=== PATIENT | female | born 1995 | race Caucasian/White ===

== ENCOUNTER 2017-10-31 22:18 | Emergency (ER) | payer BC ==
[2017-10-31] MEDS ORDERED: Ampicillin/Sulbactam Na 3 GM in Sodium Chloride 0.9% 100 ML IV ONE (22:47)
--- NOTE | 2017-10-31 22:49 | EDM.PDOC ---
ED HPI GENERAL MEDICAL PROBLEM - General Chief Complaint: Skin Complaint Stated Complaint: RASH ON HER BUTT Time Seen by Provider: 10/31/17 22:31 Source of Information: Reports: Patient History Limitations: Reports: No Limitations - History of Present Illness INITIAL COMMENTS - FREE TEXT/NARRATIVE: The patient states that she was on a cruise in [place], returning about 2 weeks ago. One week ago she developed a left buttock rash. She has had pain and, she says fever, although she has not actually checked her temperature, and is afebrile here in the ED tonight. She denies any injury to the buttock. No prior similar symptoms. No medical evaluation prior to tonight. She has applied 10% hydrocortisone cream and Neosporin, and taken [id number] ibuprofen. The patient's last oral solid food was around 19:15 MDT. Her last oral liquid intake was around 22:00 MDT. The patient just moved to this area one week ago. She does not have a PCP. Left buttocks Pain Score (Numeric/FACES): 8 - Related Data Allergies Allergy/AdvReac Type Severity Reaction Status Date / Time No Known Allergies Allergy Verified 10/31/17 22:30 Home Meds: Home Meds . [No Known Home Meds] 10/31/17 [History] Past Medical History Endocrine/Metabolic History: Reports: Obesity/BMI 30+ - Past Surgical History Dermatological Surgical History: Reports: Other (See Below) (Birthmark excised from her back) Social & Family History - Family History Family Medical History: Noncontributory - Tobacco Use Smoking Status *Q: Current Every Day Smoker Years of Tobacco use: 6 Packs/Tins Daily: 0.5 - Alcohol Use Alcohol Use History: Yes Alcohol Use Frequency: Socially - Recreational Drug Use Recreational Drug Use: No - Living Situation & Occupation Living situation: Reports: Single, with Family Occupation: Unemployed ED ROS GENERAL - Review of Systems Review Of Systems: ROS reveals no pertinent complaints other than HPI. ED EXAM, SKIN/RASH Exam: See Below Exam Limited By: No Limitations General Appearance: Alert, WD/WN, No Apparent Distress Eye Exam: Bilateral Eye: Normal Inspection Ears: Normal External Exam, Hearing Grossly Normal Nose: Normal Inspection, No Blood Throat/Mouth: Normal Inspection, Normal Lips, Normal Voice, No Airway Compromise Head: Atraumatic, Normocephalic Neck: Normal Inspection, Full Range of Motion Respiratory/Chest: No Respiratory Distress, Lungs Clear, Normal Breath Sounds, No Accessory Muscle Use Cardiovascular: Normal Peripheral Pulses, Regular Rate, Rhythm, No Gallop, No JVD, No Murmur, No Rub Peripheral Pulses: 4+: Radial (L), Radial (R) GI/Abdominal: Normal Bowel Sounds, Soft, Non-Tender, No Organomegaly, No Distention, No Abnormal Bruit, No Mass, Other (Obese) Rectal (Female) Exam: Other (Extensive brawny erythema to the left buttock, extending from the gluteal cleft, measuring approximately 12-15 cm wide, by 12- 15 cm in AP diameter. The patient is particularly tender towards the gluteal cleft, concerning for a perianal abscess, although no discrete area of induration is identified.) Back Exam: Normal Inspection, Full Range of Motion, NT Extremities: Normal Inspection, Normal Range of Motion, No Pedal Edema, Normal Capillary Refill Neurological: Alert, Oriented, Normal Cognition, No Motor/Sensory Deficits Psychiatric: Normal Affect Skin: Warm, Dry, Intact, Normal Color Course - Vital Signs Last Recorded V/S: Last Vital Signs Temp 37.4 C 10/31/17 22:24 Pulse 131 H 10/31/17 22:24 Resp 18 10/31/17 22:24 BP 137/63 10/31/17 22:24 Pulse Ox 97 10/31/17 22:24 - Orders/Labs/Meds Orders: Active Orders 24 hr Category Date Time Status Pelvis w Cont [CT] Stat Exams 10/31/17 22:45 Taken Potassium Chloride [KCl 10 MEQ in Water 100 ML] 10 meq Med 11/01/17 00:44 Ordered Premix Bag 1 bag IV ONETIME Sodium Chloride 0.9% [Normal Saline] 1,000 ml Med 10/31/17 23:00 Active IV ASDIRECTED Sodium Chloride 0.9% [Saline Flush] Med 10/31/17 23:24 Active 10 ml FLUSH ONETIME PRN Medication Orders Sodium Chloride (Normal Saline) 1,000 mls @ 150 mls/hr IV ASDIRECTED DANDRE Last Admin: 10/31/17 23:07 Dose: 150 mls/hr Sodium Chloride (Saline Flush) 10 ml FLUSH ONETIME PRN PRN Reason: Keep Vein Open Last Admin: 10/31/17 23:49 Dose: 10 ml Labs: Laboratory Tests 10/31/17 10/31/17 10/31/17 Range/Units 22:55 22:55 23:06 WBC 13.57 H (3.98-10.04) K/mm3 RBC 4.20 (3.98-5.22) M/mm3 Hgb 12.7 (11.2-15.7) gm/L Hct 38.3 (34.1-44.9) % MCV 91.2 (79.4-94.8) fl MCH 30.2 (25.6-32.2) pg MCHC 33.2 (32.2-35.5) g/dl RDW Std Deviation 40.7 (36.4-46.3) fL Plt Count 199 (182-369) K/mm3 MPV 10.1 (9.4-12.3) fl Neutrophils % (Manual) 87 H (40-60) % Band Neutrophils % 0 (0-10) % Lymphocytes % (Manual) 4 L (20-40) % Atypical Lymphs % 2 % Monocytes % (Manual) 6 (2-10) % Eosinophils % (Manual) 1 (0.7-5.8) % Basophils % (Manual) 0 L (0.1-1.2) Toxic Granulation 2+ moderate Dohle Bodies Platelet Estimate Adequate Plt Morphology Comment Normal RBC Morph Comment Normal Sodium 135 L (136-145) mEq/L Potassium 3.1 L (3.5-5.1) mEq/L Chloride 100 (98-107) mEq/L Carbon Dioxide 23 (21-32) mEq/L Anion Gap 15.1 H (5-15) BUN 18 (7-18) mg/dL Creatinine 1.3 H (0.55-1.02) mg/dL Est Cr Clr Drug Dosing 67.89 mL/min Estimated GFR (MDRD) 51 (>60) mL/min BUN/Creatinine Ratio 13.8 L (14-18) Glucose 108 H (74-106) mg/dL Calcium 9.0 (8.5-10.1) mg/dL Total Bilirubin 0.5 (0.2-1.0) mg/dL AST 15 (15-37) U/L ALT 23 (14-59) U/L Alkaline Phosphatase 94 (46-116) U/L Total Protein 7.3 (6.4-8.2) g/dl Albumin 2.8 L (3.4-5.0) g/dl Globulin 4.5 gm/dL Albumin/Globulin Ratio 0.6 L (1-2) Urine HCG, Qual Negative (NEGATIVE) Meds: Medications Generic Name Dose Route Start Last Admin Trade Name Freaye PRN Reason Stop Dose Admin Sodium Chloride 1,000 mls @ 150 mls/hr 10/31/17 23:00 10/31/17 23:07 Normal Saline IV 150 mls/hr ASDIRECTED DANDRE Administration Sodium Chloride 10 ml 10/31/17 23:24 10/31/17 23:49 Saline Flush FLUSH 10 ml ONETIME PRN Administration Keep Vein Open Discontinued Medications Generic Name Dose Route Start Last Admin Trade Name Freq PRN Reason Stop Dose Admin Ampicillin Sodium/Sulbactam 100 mls @ 200 mls/hr 10/31/17 22:47 10/31/17 23: 07 Sodium 3 gm/ Sodium Chloride IV 10/31/17 23:16 200 mls/hr ONETIME ONE Administration Iopamidol 100 ml 10/31/17 23:24 10/31/17 23:49 Isovue-300 (61%) IVPUSH 10/31/17 23:25 100 ml ONETIME ONE Administration - Re-Assessments/Exams Free Text/Narrative Re-Assessment/Exam: 10/31/17 22:47 The patient has extensive erythema and induration of the left buttock, extending to the anus,, measuring at least 12 x 12 cm. She is particularly tender near the anus, which is worrisome for a perianal abscess, possibly as the source of this cellulitis. I have ordered blood work, urine test, and a CT scan of the pelvis with IV contrast to evaluate the extent of the cellulitis and to determine if there is an abscess present. In the meantime, I have ordered IV fluid and IV Unasyn. If no abscess is present, I am going to recommend that we admit the patient for IV antibiotics until there are signs of improvement, at which time she can be switched to oral antibiotics. If an abscess is present, the patient will require admission for surgical incision and drainage, in addition to IV antibiotics. 11/01/17 00:13 The patient's WBC count is elevated at 13.57, with 0% bandemia. The remainder of her CBC is unremarkable. The patient's CMP finds her potassium depressed at 3.1, and her creatinine at the upper limits of normal of 1.3. The remainder of her CMP is unremarkable. The patient's urine test returned negative. CT of the pelvis with IV contrast is read by [facility] as: 1. Right sided perirectal abscess with extensive soft tissue emphysema extending from the area of the abscess along the left side of the gluteal cleft , approaching the skin. The extent of the emphysema is worrisome for a necrotizing process such as necrotizing fasciitis or gangrene. 11/01/17 00:[address] Ford at 00:15. He felt that the patient will not only required bribery, but may require anal amputation, and therefore the extent of the surgery is beyond the capacity of this facility. He recommends transfer to an established perirectal surgeon, such as Dr. Dean at [facility]. 11/01/17 00:36 Case discussed with [facility] at 00:22 Case then discussed with Dr. Dsouza, general surgeon coffee plantation worker at [facility] , at 00:28. She would like me to give the patient a 10 mEq K-rider. She accepts the patient for direct admission to their ICU. She would like the patient transported as soon as possible, therefore we will follow the patient by helicopter. The CT images have been pushed to [facility]. Departure - Departure Time of Disposition: 00:40 Disposition: DC/Tfer to Acute Hospital 02 Condition: Serious Clinical Impression: Perianal abscess, Necrotizing fasciitis, Hypokalemia - Discharge Information - My Orders Last 24 Hours: My Active Orders 10/31/17 22:45 Pelvis w Cont [CT] Stat 10/31/17 23:00 Sodium Chloride 0.9% [Normal Saline] 1,000 ml IV ASDIRECTED 10/31/17 23:24 Sodium Chloride 0.9% [Saline Flush] 10 ml FLUSH ONETIME PRN 11/01/17 00:44 Potassium Chloride [KCl 10 MEQ in Water 100 ML] 10 meq Premix Bag 1 bag IV ONETIME - Assessment/Plan Last 24 Hours: My Active Orders 10/31/17 22:45 Pelvis w Cont [CT] Stat 10/31/17 23:00 Sodium Chloride 0.9% [Normal Saline] 1,000 ml IV ASDIRECTED 10/31/17 23:24 Sodium Chloride 0.9% [Saline Flush] 10 ml FLUSH ONETIME PRN 11/01/17 00:44 Potassium Chloride [KCl 10 MEQ in Water 100 ML] 10 meq Premix Bag 1 bag IV ONETIME
[2017-10-31] MEDS ORDERED: Sodium Chloride 0.9% 1,000 ML IV SCH (23:00)
[2017-10-31] MEDS ORDERED: Iopamidol 612 MG/ML 100 ML Bottle IVPUSH ONE (23:24)
[2017-10-31] MEDS ORDERED: Sodium Chloride 0.9% 10 ML Syringe FLUSH PRN (23:24)
[2017-11-01] MEDS ORDERED: Potassium Chloride 10 MEQ in Premix Bag 1 BAG IV STA (00:44)
--- NOTE | 2017-11-02 08:55 | CT ---
CT pelvis Technique: Multiple axial sections were obtained through the pelvis. Intravenous and oral contrast not utilized. Reconstructed coronal and sagittal images were reviewed. Findings: Soft tissue air is seen within the left medial buttock (next to the gluteal cleft) and within the left perirectal region. Findings are compatible with soft tissue abscess and cellulitis. Skin thickening is seen within the medial left buttock. No muscle involvement is seen at this time. No intrapelvic abnormality is seen. Impression: 1. Abscess within the perirectal region on the left side which extends into the medial left gluteal region next to the gluteal cleft. Diagnostic code #5 Agree with preliminary report issued by [facility] ([facility] preliminary report dictated on 10/24/17, 1:09 AM Central Time) RAGHAVENDRA
== END 2017-11-01 01:20 ==
LOC: JD.ED 22:18
DX: K61.0 Anal abscess (principal); M72.6 Necrotizing fasciitis; E87.6 Hypokalemia; F17.210 Nicotine dependence, cigarettes, uncomplicated
CPT/HCPCS: 36415; 72193; 80053; 81025; 85007; 85027; 96361; 96365; 96367; 99285; J0295; J3480; J7030; J7040; J7050; Q9967; 99284

== ENCOUNTER 2017-11-26 17:46 | Emergency (ER) | payer MEDICAID ==
--- NOTE | 2017-11-26 18:32 | EDM.PDOC ---
ED HPI GENERAL MEDICAL PROBLEM - General Chief Complaint: Skin Complaint Stated Complaint: POST SURGICAL ISSUES Time Seen by Provider: 11/26/17 18:04 Source of Information: Reports: Patient, Old Records History Limitations: Reports: No Limitations - History of Present Illness INITIAL COMMENTS - FREE TEXT/NARRATIVE: The patient was seen by me in this ED on 10/31/2017 for a left buttock rash. Workup in the ED included a CBC, CMP, urine hCG, and CT scan of the pelvis with IV contrast. The CT scan found a right-sided perirectal abscess with extensive soft tissue emphysema extending from the area of the abscess along the left side of the gluteal cleft, approaching the skin. The extent of the emphysema was worrisome for a necrotizing process, such as necrotizing fasciitis or gangrene. The patient was started on empiric Unasyn, then transferred to Dr. Dsouza at [facility] in the manager process of 11/01/2017. The patient states that she underwent surgical department on 11/01/2017 and 2017, confirming necrotizing fasciitis. The anus/rectum were spared. She was discharged home on 11/15/2017 with prescriptions for [place], Flagyl, and Augmentin. The patient was instructed to change a dry-to-dry dressing daily. She followed up with Dr. Dsouza this past 11/22/2017. The patient states that Dr. Dsouza was pleased with the progress, and the patient is being kept on the Flagyl and Augmentin through Wednesday11/29/2017. The patient now presents with concern about a yellowish/green substance seen on the inner most part of the dressing when it is changed, since yesterday. No new pain. No recent fever. The patient has an appointment to follow-up with Maria Luz Velázquez this coming Wednesday , 12/03/2017. - Related Data Allergies Allergy/AdvReac Type Severity Reaction Status Date / Time No Known Allergies Allergy Verified 10/31/17 22:30 Home Meds: Home Meds Amoxicillin/Potassium Clav [Amox-Clav 875-125 mg Tablet] 1 tab PO BID 11/26/17 [ History] metroNIDAZOLE [Flagyl] 500 mg PO TID 11/26/17 [History] Past Medical History Endocrine/Metabolic History: Reports: Obesity/BMI 30+ - Past Surgical History Musculoskeletal Surgical History: Reports: Other (See Below) (Surgical debridement of necrotizing fasciitis left buttock 11/01/2017 and 11/03/2017) Dermatological Surgical History: Reports: Other (See Below) (Birthmark excised from her back) Social & Family History - Family History Family Medical History: Noncontributory - Tobacco Use Smoking Status *Q: Current Every Day Smoker Years of Tobacco use: 6 Packs/Tins Daily: 0.5 - Alcohol Use Alcohol Use History: Yes Alcohol Use Frequency: Socially - Recreational Drug Use Recreational Drug Use: No - Living Situation & Occupation Living situation: Reports: Single, with Family Occupation: Unemployed ED ROS GENERAL - Review of Systems Review Of Systems: ROS reveals no pertinent complaints other than HPI. ED EXAM, SKIN/RASH Exam: See Below Exam Limited By: No Limitations General Appearance: Alert, WD/WN, No Apparent Distress Rectal (Female) Exam: Other (There is a relatively small surgical wound to the left buttock, extending towards the anus, with clean subcutaneous tissue visible within the wound. There is a very small amount of greenish drainage noted on the tip of the dressing, otherwise, the 2-hour old dressing is dry. No malodor. No drainage, purulent or otherwise, from the wound. No erythema or swelling to the surrounding skin.) Course - Vital Signs Last Recorded V/S: Last Vital Signs Temp 37.3 C 11/26/17 18:04 Pulse 96 11/26/17 18:04 Resp 20 11/26/17 18:04 BP 107/63 11/26/17 18:04 Pulse Ox 99 11/26/17 18:04 - Re-Assessments/Exams Free Text/Narrative Re-Assessment/Exam: 11/26/17 18:22 The gauze dressing was removed, and the wound inspected. There is a tiny amount of yellowish/green drainage on the tip of the gauze, but the wound itself appears to be very clean and healing well. There is no suggestion of an active infection. I'm recommending continuation of the current management, as it appears to be going well. Departure - Departure Time of Disposition: 18:23 Disposition: Home, Self-Care 01 Condition: Good Clinical Impression: Draining postoperative wound - Discharge Information Referrals: Koki Dsouza MD [Ordering Only Provider] - Maria Luz Velázquez NP [Ordering Only Provider] - Additional Instructions: You were seen in the emergency room over concern of the color of the drainage from your left buttock dressing. On examination, the wound appears to be clean and healing well. Continue to change the dressing daily, as you have been, and continue to take the Flagyl and Augmentin, as previously prescribed. Follow-up with Maria Luz Velázquez at your previously scheduled appointment this coming 12/03/2017. If any other problems, please do not hesitate to return to the ER.
== END 2017-11-26 18:40 | disposition home or self-care (01) ==
LOC: JD.ED 17:46 → SUPCPDRO 17:46 → JD.ED 18:40
DX: T81.4XXA Infection following a procedure, initial encounter (principal); F17.210 Nicotine dependence, cigarettes, uncomplicated; Z79.899 Other long term (current) drug therapy; Z98.890 Other specified postprocedural states
CPT/HCPCS: 99283